=== PATIENT | male | born 1970 | race Hispanic/Latino ===

== ENCOUNTER 2018-08-19 21:12 | Emergency (ER) | payer SELFPAY ==
[~2018-08-19] VITALS: Ht 175.3 cm; Wt 83.9 kg
[2018-08-19] MEDS ORDERED: ALPRAZOLAM0.5 MG PO (21:26)
[2018-08-19] MEDS ORDERED: SERTRALINE HCL25 MG PO (21:26)
== END 2018-08-19 23:00 | disposition home or self-care (01) ==
LOC: ED 21:12
DX: F41.9 Anxiety disorder, unspecified (principal); R42 Dizziness and giddiness; Z79.899 Other long term (current) drug therapy
CPT/HCPCS: 80053; 81001; 84443; 85025; 99284